=== PATIENT | male | born 1960 | race Caucasian/White ===

== ENCOUNTER 2024-03-30 00:02 | Emergency (ER) | payer MEDICARE, BC ==
[2024-03-30 00:25] VITALS: BP 117/77; PULSE 95
[2024-03-30] MEDS: cefTRIAXone 1 GM, Lidocaine 1% 2.1 ML IM ONE (00:51)
== END 2024-03-30 01:03 | disposition home or self-care (01) ==
LOC: JP.ED 00:02
DX: M70.21 Olecranon bursitis, right elbow (principal); Z86.16 Personal history of COVID-19; Z79.899 Other long term (current) drug therapy
CPT/HCPCS: 96372; 99283; J0696